=== PATIENT | female | born 1965 | race African-American/Black ===

== ENCOUNTER 2019-08-23 22:42 | Emergency (ER) | payer SELFPAY ==
[~2019-08-23] VITALS: Ht 170.2 cm; Wt 77.0 kg
[2019-08-23] MEDS ORDERED: SODIUM CHLORIDE 0.9% 1,000 ML IV ONE (23:43)
[2019-08-23] MEDS ORDERED: TETANUS, DIPHTHERIA, PERTUSSIS VAC/PF 0.5ML (>7YR OLD) IM ONE (23:45)
[2019-08-23] MEDS ORDERED: BACITRACIN ZINC OINT UDPKT TOP ONE (23:45)
[2019-08-23] MEDS ORDERED: LIDOCAINE 1%/EPI 1:100,000 10 ML VIAL IJ ONE (23:45)
[2019-08-24] MEDS ORDERED: LIDOCAINE HCL/EPINEPHRINE 1%-EPI 1:100,000 20 ML VIAL INFIL NR (01:15)
[2019-08-24] MEDS ORDERED: BACITRACIN 15GM TUBE TOP NR (01:15)
[2019-08-24] MEDS ORDERED: CEFAZOLIN 1000MG PREMIX 50 ML IV ONE (01:15)
[2019-08-24] MEDS ORDERED: LIDOCAINE HCL/EPINEPHRINE 1%-EPI 1:100,000 20 ML VIAL ONE (01:27)
[2019-08-24 02:26] LABS: BASOPHILS % 0.9 % (0.0-2.0); CHLORIDE 106 mEq/L (98-107); EOSINOPHILS % 1.8 % (0.0-5.0); HEMATOCRIT. 39.6 % (36.0-48.0); HEMOGLOBIN. 13.4 g/dL (12.0-16.0); LYMPHOCYTES % 15.7 % (20.0-50.0); MEAN CORPUSCULAR HEMOGLOBIN 24.4 pg (28.0-32.0); MEAN CORPUSCULAR VOLUME 72.4 fL (81.0-99.0); MEAN PLATELET VOLUME 9.6 fl (7.4-10.4); MONOCYTES % 6.3 % (2.0-8.0); NEUTROPHILS % 75.3 % (40.0-76.0); PLATELET 247 x1000/uL (130-400); RED BLOOD CELL COUNT 5.47 mill/uL (4.2-5.4); RED CELL DISTRIBUTION WIDTH 15.3 % (11.6-14.6)
[2019-08-24 02:31] LABS: PARTIAL THROMBOPLASTIN TIME 24.9 sec (23.4-31.0); PROTHROMBIN TIME 10.3 sec (9.6-11.0)
[2019-08-24 07:27] VITALS: BP 166/94
== END 2019-08-24 07:26 | disposition short-term general hospital (02) ==
LOC: ER 22:42
DX: S02.91XA Unspecified fracture of skull, initial encounter for closed fracture (principal); S01.01XA Laceration without foreign body of scalp, initial encounter; I49.9 Cardiac arrhythmia, unspecified; W10.8XXA Fall (on) (from) other stairs and steps, initial encounter; Y93.89 Activity, other specified; Y92.89 Other specified places as the place of occurrence of the external cause; Y99.8 Other external cause status
CPT/HCPCS: 12005; 36415; 70450; 80053; 80320; 85025; 85610; 85730; 90471; 90715; 93005; 96365; 99285; J0690; J3490; J7030; Z7610; G0480